=== PATIENT | female | born 1980 | race Caucasian/White ===

== ENCOUNTER → 2016-11-01 | Outpatient (CLI) | payer OTHER ==
[~2016-11-01] MED LIST: AUGM500T34 PO; PERC5TAB6 PO; PRED20TA PO
== END ==
LOC: M LAB 09:29
PROVIDERS: ATTEND Obstetrics & Gynecology
DX: N96 Recurrent pregnancy loss (principal); N91.2 Amenorrhea, unspecified

== ENCOUNTER → 2016-11-03 | Outpatient (CLI) | payer OTHER | LOC: M WUC 10:57 | PROVIDERS: ATTEND Specialist | DX: O26.21 Pregnancy care for patient with recurrent pregnancy loss, first trimester (principal) ==

== ENCOUNTER → 2016-11-05 | Outpatient (CLI) | payer OTHER ==
--- NOTE | 2016-11-05 10:24 | REP ---
FIRST TRIMESTER ULTRASOUND: Real-time sonographic evaluation of the pelvis is performed utilizing transabdominal and endovaginal technique. The uterus measures 9.6 x 4.6 x 7.4 cm. 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 Endometrial thickness on the right is about 11 mm and on the left is about 15 mm. There is no endometrial fluid collection. A few tiny cystic areas in the endometrial echo complex are seen measuring up to 2 mm in diameter. Right ovary measures 2.5 x 2.8 x 1.9 cm and the left ovary is 2.5 x 1.8 x 2.3 cm. There is blood flow seen in each ovary with duplex Doppler evaluation, with no torsion. There appears to be a cystic structure in the right ovary which may represent a dominant follicle or corpus luteum, approximately 1.1 cm in maximum diameter. Echogenic focus in the left ovary could represent a tiny dermoid 5 x 7 x 5 mm. Trace free fluid is seen in the pelvis. IMPRESSION: No definite intrauterine identified as discussed in detail above. No adnexal mass. Trace free fluid. I cannot rule out ectopic and would recommend correlation with followup serial quantitative beta HCG values. Signed by Da Ugalde MD 11/05/2016 07:39 P
== END ==
LOC: M SMT 08:38
PROVIDERS: ATTEND Obstetrics & Gynecology
DX: Z36 Encounter for antenatal screening of mother (principal); Z3A.00 Weeks of gestation of pregnancy not specified

== ENCOUNTER → 2016-11-12 | Outpatient (CLI) | payer OTHER | LOC: M WUC 14:01 | PROVIDERS: ATTEND Obstetrics & Gynecology | DX: Z36 Encounter for antenatal screening of mother (principal); Z3A.00 Weeks of gestation of pregnancy not specified ==

== ENCOUNTER → 2016-11-17 | Outpatient (CLI) | payer OTHER | LOC: M WUC 14:32 | PROVIDERS: ATTEND Obstetrics & Gynecology | DX: O02.1 Missed abortion (principal); O03.4 Incomplete spontaneous abortion without complication; Z3A.00 Weeks of gestation of pregnancy not specified | CPT/HCPCS: 36415; 84702; 86850; 86901; J2790 ==

== ENCOUNTER → 2016-11-25 | Outpatient (CLI) | payer OTHER ==
--- NOTE | 2016-11-25 13:03 | REP ---
RIGHT BREAST ULTRASOUND: 11/25/2016. Comparison: 05/13/2016, 02/06/2016. Clinical history: Right breast cyst, redness and pain retroareolar zone. The patient had a right breast surgery 1 year ago for reported abscess retroareolar region. Sonographic evaluation of this region in the retroareolar right breast with pain at about the 9 o'clock position adjacent to the nipple near her surgical scar. There is some minor subcutaneous edema noted in this region. A zone of shadowing at 6 o'clock which could obscure findings deep. This may be postsurgical change. I do not see a drainable collection, discrete mass or cyst. A few ducts are seen leading to the nipple which is normal appearance. Impression: 1. Retroareolar region 6 o'clock position in the area of her redness and near the area of pain shows an area of shadowing from edge artifact or postsurgical change. I do not see a definite drainable collection or mass although is possible one could be obscured by the edge artifact, there are no cysts or solid mass definitely visible. A few mildly prominent ducts are noted in the retroareolar region which is normal. Careful follow-up recommended. If the patient has a fever, worsening symptoms, repeat ultrasound. Ultimately, mammography may be helpful if symptoms persist. Signed by Ty Loya MD 11/25/2016 05:44 P
== END ==
LOC: M RAD 10:17
PROVIDERS: ATTEND Nurse Practitioner Adult Health
DX: N60.01 Solitary cyst of right breast (principal)

== ENCOUNTER → 2016-12-01 | Outpatient (CLI) | payer OTHER | LOC: M WUC 16:52 | PROVIDERS: ATTEND Obstetrics & Gynecology | DX: O03.4 Incomplete spontaneous abortion without complication (principal); Z3A.00 Weeks of gestation of pregnancy not specified ==

== ENCOUNTER → 2016-12-08 | Outpatient (CLI) | payer OTHER | LOC: M WUC 15:20 | PROVIDERS: ATTEND Obstetrics & Gynecology | DX: O03.4 Incomplete spontaneous abortion without complication (principal) ==

== ENCOUNTER → 2016-12-25 | Outpatient (CLI) | payer OTHER | LOC: M WUC 14:23 | PROVIDERS: ATTEND Obstetrics & Gynecology | DX: O03.4 Incomplete spontaneous abortion without complication (principal) ==

== ENCOUNTER → 2016-12-29 | Outpatient (CLI) | payer OTHER | LOC: M WUC 13:49 | PROVIDERS: ATTEND Obstetrics & Gynecology | DX: O03.4 Incomplete spontaneous abortion without complication (principal); Z3A.00 Weeks of gestation of pregnancy not specified ==

== ENCOUNTER 2017-03-02 23:42 | Emergency (ER) | payer OTHER ==
[~2017-03-02] VITALS: Ht 167.6 cm; Wt 86.2 kg
[2017-03-02] MEDS ORDERED: TRAZ100T4 (23:53)
[2017-03-02] MEDS ORDERED: D 50CAP (23:53)
[2017-03-02] MEDS ORDERED: TANZ1INJ (23:53)
[2017-03-03] MEDS ORDERED: TRAM50TA2 PO (04:15)
[2017-03-03] MEDS ORDERED: KETOROLAC 60 MG/2 ML VIAL (J1885) IM ONE (04:15)
[2017-03-03 04:53] VITALS: BP 131/78
--- NOTE | 2017-03-03 07:22 | REP ---
Clinical: Trauma. Technique: AP, lateral, bilateral oblique views of the right ankle. Comparison: 11/19/2007 Findings: Mild soft tissue swelling cannot be excluded. No obvious acute fracture dislocation. Joint spaces and ankle mortise are intact. Lateral view demonstrates a small unfused apophysis along the superior posterior margin of the navicular bone which remain stable compared to 2007. Impression: Mild soft tissue swelling. No acute fracture dislocation. Stable appearance to the navicular bone when compared to 2007. Signed by Jose Alejandro Salter MD 03/03/2017 07:14 A
== END 2017-03-03 04:55 | disposition home or self-care (01) ==
LOC: M ED 03-03 01:02
DX: S92.251A Displaced fracture of navicular [scaphoid] of right foot, initial encounter for closed fracture (principal); W01.0XXA Fall on same level from slipping, tripping and stumbling without subsequent striking against object, initial encounter; Y92.099 Unspecified place in other non-institutional residence as the place of occurrence of the external cause; Y93.01 Activity, walking, marching and hiking; Y99.8 Other external cause status; F17.200 Nicotine dependence, unspecified, uncomplicated; Z88.5 Allergy status to narcotic agent; Z91.040 Latex allergy status; Z79.899 Other long term (current) drug therapy

== ENCOUNTER → 2017-06-11 | Outpatient (CLI) | payer OTHER ==
[~2017-06-11] MED LIST changes: +D 50CAP; +PERC5TAB12 PO; -PERC5TAB6 PO; +TANZ1INJ; +TRAM50TA2 PO; +TRAZ-136
[2017-06-11 13:00] LABS: BASO # 0.1 K/mm3 (0.0-0.2); BASO % 0.9 % (0.0-1.0); EOS # 0.4 K/mm3 (0.0-0.50); EOS % 4.8 % (0.0-3.0); LYMPH # 2.8 K/mm3 (1.5-4.5); MEAN CORPUSCULAR HEMOGLOBIN 31.9 pg (27.0-33.0); MEAN CORPUSCULAR HGB CONC 33.1 g/dl (32.0-36.5); MEAN CORPUSCULAR VOLUME 96.6 fl (80.0-96.0); MONO # 0.4 K/mm3 (0.0-0.8); MONO % 4.3 % (0.0-5.0); NEUTROPHILS % 57.8 % (36.0-66.0); RED CELL DISTRIBUTION WIDTH 13.1 % (11.5-14.5); WHITE BLOOD COUNT 8.6 K/mm3 (4.0-10.0)
[2017-06-11 13:49] LABS: ALBUMIN 3.6 GM/DL (3.2-5.2); ALBUMIN/GLOBULIN RATIO 1.06 (1.00-1.93); ALKALINE PHOSPHATASE 65 U/L (45-117); ALT/SGPT 23 U/L (12-78); ANION GAP 11 MEQ/L (8-16); AST/SGOT 11 U/L (15-37); BILIRUBIN,TOTAL 0.3 MG/DL (0.2-1.0); BLOOD UREA NITROGEN 7 MG/DL (7-18); CALCIUM LEVEL 9.3 MG/DL (8.5-10.1); CARBON DIOXIDE LEVEL 23 MEQ/L (21-32); CHLORIDE LEVEL 109 MEQ/L (98-107); CHOLESTEROL LEVEL 193 MG/DL (<200); CREATININE FOR GFR 0.55 MG/DL (0.55-1.02); FREE T4 0.88 NG/DL (0.76-1.46); GLOMERULAR FILTRATION RATE > 60.0 (>60); GLUCOSE, FASTING 102 MG/DL (70-105); POTASSIUM SERUM 4.4 MEQ/L (3.5-5.1); SODIUM LEVEL 143 MEQ/L (136-145); TRIGLYCERIDES LEVEL 293 MG/DL (<150)
== END ==
LOC: M WUC 09:45
PROVIDERS: ATTEND Nurse Practitioner Adult Health
DX: E78.1 Pure hyperglyceridemia (principal); E11.9 Type 2 diabetes mellitus without complications; E78.5 Hyperlipidemia, unspecified; E55.9 Vitamin D deficiency, unspecified; Z79.899 Other long term (current) drug therapy

== ENCOUNTER → 2017-11-02 | Outpatient (CLI) | payer OTHER ==
[2017-11-02 19:46] LABS: TOTAL 25(OH) VITAMIN D 13.8 NG/ML (30.0-100.0)
[2017-11-02 20:02] LABS: BASO # 0.1 10^3/uL (0.0-0.2); BASO % 0.9 % (0.0-1.0); EOS # 0.4 10^3/uL (0.0-0.50); EOS % 5.1 % (0.0-3.0); HEMATOCRIT 45.8 % (36.0-47.0); HEMOGLOBIN 15.3 g/dl (12.0-16.0); IMMATURE GRANULOCYTE # 0.1 10^3/uL (0-0); IMMATURE GRANULOCYTE % 0.9 % (0-0); LYMPH % 37.1 % (24.0-44.0); MEAN CORPUSCULAR HEMOGLOBIN 31.4 pg (27.0-33.0); MEAN CORPUSCULAR HGB CONC 33.4 g/dl (32.0-36.5); MEAN CORPUSCULAR VOLUME 93.9 fl (80.0-96.0); MONO # 0.5 10^3/uL (0.0-0.8); MONO % 5.5 % (0.0-5.0); NEUTROPHILS # 4.1 10^3/uL (1.8-7.7); NEUTROPHILS % 50.5 % (36.0-66.0); PLATELET COUNT, AUTOMATED 281 10^3/uL (150-450); RED BLOOD COUNT 4.88 10^6/uL (4.00-5.40); RED CELL DISTRIBUTION WIDTH 12.9 % (11.5-14.5); WHITE BLOOD COUNT 8.1 10^3/uL (4.0-10.0)
[2017-11-02 20:20] LABS: ALBUMIN 4.1 GM/DL (3.2-5.2); ALBUMIN/GLOBULIN RATIO 1.28 (1.00-1.93); ALKALINE PHOSPHATASE 71 U/L (45-117); ALT/SGPT 26 U/L (12-78); ANION GAP 9 MEQ/L (8-16); AST/SGOT 17 U/L (7-37); BILIRUBIN,TOTAL 0.5 MG/DL (0.2-1.0); BLOOD UREA NITROGEN 8 MG/DL (7-18); CALCIUM LEVEL 8.7 MG/DL (8.5-10.1); CARBON DIOXIDE LEVEL 24 MEQ/L (21-32); CHLORIDE LEVEL 108 MEQ/L (98-107); CHOLESTEROL LEVEL 202 MG/DL (<200); CHOLESTEROL RISK RATIO 6.312 (<5); CREATININE FOR GFR 0.53 MG/DL (0.55-1.30); FREE T4 0.94 NG/DL (0.76-1.46); GLOMERULAR FILTRATION RATE > 60.0 (>60); GLUCOSE, FASTING 99 MG/DL (70-100); HDL CHOLESTEROL 32 MG/DL (>40); LDL CHOLESTEROL 109.8 MG/DL (<100); NON-HDL-C 170 MG/DL; POTASSIUM SERUM 4.3 MEQ/L (3.5-5.1); SODIUM LEVEL 141 MEQ/L (136-145); TOTAL PROTEIN 7.3 GM/DL (6.4-8.2); TRIGLYCERIDES LEVEL 301 MG/DL (<150)
[2017-11-02 20:27] LABS: ESTIMATED AVERAGE GLUCOSE 114 MG/DL (60-110); HEMOGLOBIN A1c 5.6 %
== END ==
LOC: M WUC 13:36
DX: E78.1 Pure hyperglyceridemia (principal); E11.9 Type 2 diabetes mellitus without complications; E55.9 Vitamin D deficiency, unspecified; E78.5 Hyperlipidemia, unspecified; Z79.899 Other long term (current) drug therapy
CPT/HCPCS: 84443

== ENCOUNTER → 2017-12-21 | Outpatient (CLI) | payer OTHER ==
[2017-12-21 17:14] LABS: HCG, SERUM QUANTITATIVE 742 MIU/ML
== END ==
LOC: M WUC 14:44
DX: N91.2 Amenorrhea, unspecified (principal)
CPT/HCPCS: 84702

== ENCOUNTER → 2017-12-23 | Outpatient (CLI) | payer OTHER ==
[2017-12-23 18:01] LABS: HCG, SERUM QUANTITATIVE 1305 MIU/ML
== END ==
LOC: M WUC 14:51
DX: N91.2 Amenorrhea, unspecified (principal)
CPT/HCPCS: 84702

== ENCOUNTER 2018-01-30 11:48 | Emergency (ER) | payer OTHER ==
[2018-01-30 13:45] LABS: KETONE, URINE AUTO RFX NEGATIVE (NEGATIVE); LEUKOCYTE ESTERASE UR AUTO RFX NEGATIVE (NEGATIVE); NITRITE, URINE AUTO RFX NEGATIVE (NEGATIVE); RBC, URINE AUTO RFX 1 /HPF (0-3); SPECIFIC GRAVITY UR AUTO RFX 1.003 (1.002-1.035); SQUAM EPITHELIAL CELL UR AURFX 0 /HPF (0-6); WBC, URINE AUTO RFX 0 /HPF (0-3)
[2018-01-30 14:17] LABS: HCG, SERUM QUANTITATIVE 45211 MIU/ML
== END 2018-01-30 15:33 | disposition home or self-care (01) ==
LOC: M ED 11:48
DX: O26.891 Other specified pregnancy related conditions, first trimester (principal); R10.2 Pelvic and perineal pain; O99.331 Smoking (tobacco) complicating pregnancy, first trimester; F17.210 Nicotine dependence, cigarettes, uncomplicated; O26.20 Pregnancy care for patient with recurrent pregnancy loss, unspecified trimester; Z3A.09 9 weeks gestation of pregnancy; Z88.5 Allergy status to narcotic agent; Z91.040 Latex allergy status; Z79.899 Other long term (current) drug therapy; Z79.4 Long term (current) use of insulin
CPT/HCPCS: 76801

== ENCOUNTER 2018-02-07 20:32 | Emergency (ER) | payer OTHER ==
[2018-02-07 21:19] LABS: KETONE, URINE AUTO RFX TRACE mg/dL (NEGATIVE); LEUKOCYTE ESTERASE UR AUTO RFX NEGATIVE (NEGATIVE); MUCUS, URINE RFX SMALL (NEGATIVE); NITRITE, URINE AUTO RFX NEGATIVE (NEGATIVE); RBC, URINE AUTO RFX 1 /HPF (0-3); SPECIFIC GRAVITY UR AUTO RFX 1.025 (1.002-1.035); SQUAM EPITHELIAL CELL UR AURFX 1 /HPF (0-6); WBC, URINE AUTO RFX 1 /HPF (0-3)
[2018-02-07 22:24] LABS: HEMATOCRIT 38.1 % (36.0-47.0); HEMOGLOBIN 12.8 g/dl (12.0-15.5); MEAN CORPUSCULAR HEMOGLOBIN 31.6 pg (27.0-33.0); MEAN CORPUSCULAR HGB CONC 33.6 g/dl (32.0-36.5); MEAN CORPUSCULAR VOLUME 94.1 fl (80.0-96.0); PLATELET COUNT, AUTOMATED 298 10^3/uL (150-450); RED BLOOD COUNT 4.05 10^6/uL (4.00-5.40); RED CELL DISTRIBUTION WIDTH 13.1 % (11.5-14.5)
[2018-02-07 22:59] LABS: HCG, SERUM QUANTITATIVE 35773 MIU/ML
[2018-02-09 09:34] LABS: BEDSIDE GLUCOSE 94 MG/DL (70-105)
== END 2018-02-07 23:33 | disposition home or self-care (01) ==
LOC: M ED 20:32
DX: O20.0 Threatened abortion (principal); Z88.5 Allergy status to narcotic agent; Z91.040 Latex allergy status; O99.331 Smoking (tobacco) complicating pregnancy, first trimester; F17.210 Nicotine dependence, cigarettes, uncomplicated; Z3A.11 11 weeks gestation of pregnancy
CPT/HCPCS: 76801

== ENCOUNTER → 2018-02-18 | Outpatient (REF) | payer OTHER | LOC: M LAB REF 12:45 | DX: R30.0 Dysuria (principal) ==

== ENCOUNTER → 2018-02-18 | Outpatient (REF) | payer OTHER | LOC: M LAB REF 13:37 | DX: L02.239 Carbuncle of trunk, unspecified (principal) ==

== ENCOUNTER → 2018-03-29 | Outpatient (CLI) | payer OTHER | LOC: M RAD 09:35 | DX: Z34.82 Encounter for supervision of other normal pregnancy, second trimester (principal); Z3A.18 18 weeks gestation of pregnancy | CPT/HCPCS: 76811 ==

== ENCOUNTER → 2018-04-03 | Outpatient (CLI) | payer OTHER ==
[2018-04-03 18:56] LABS: ESTIMATED AVERAGE GLUCOSE 97 MG/DL (60-110)
== END ==
LOC: M WUC 09:33
DX: O24.112 Pre-existing type 2 diabetes mellitus, in pregnancy, second trimester (principal)
CPT/HCPCS: 83036

== ENCOUNTER → 2018-05-12 | Outpatient (CLI) | payer OTHER | LOC: M RAD 08:30 | DX: O24.112 Pre-existing type 2 diabetes mellitus, in pregnancy, second trimester (principal); Z3A.24 24 weeks gestation of pregnancy | CPT/HCPCS: 76816 ==

== ENCOUNTER → 2018-05-26 | Outpatient (CLI) | payer OTHER ==
[2018-05-26 12:07] LABS: BASO % 0.3 % (0.0-1.0); EOS # 0.2 10^3/uL (0.0-0.50); EOS % 1.7 % (0.0-3.0); HEMATOCRIT 35.7 % (36.0-47.0); HEMOGLOBIN 11.8 g/dl (12.0-15.5); IMMATURE GRANULOCYTE % 1.4 % (0-3.0); LYMPH # 2.5 10^3/uL (1.5-4.5); LYMPH % 21.8 % (24.0-44.0); MEAN CORPUSCULAR HGB CONC 33.1 g/dl (32.0-36.5); MEAN CORPUSCULAR VOLUME 93.7 fl (80.0-96.0); MONO # 0.4 10^3/uL (0.0-0.8); MONO % 3.4 % (0.0-5.0); NEUTROPHILS # 8.2 10^3/uL (1.8-7.7); NEUTROPHILS % 71.4 % (36.0-66.0); PLATELET COUNT, AUTOMATED 284 10^3/uL (150-450); RED BLOOD COUNT 3.81 10^6/uL (4.00-5.40); RED CELL DISTRIBUTION WIDTH 13.4 % (11.5-14.5); WHITE BLOOD COUNT 11.5 10^3/uL (4.0-10.0)
[2018-05-27 09:05] LABS: RH ONLY RHOGAM 1 1
== END ==
LOC: M LAB 11:47
DX: Z34.82 Encounter for supervision of other normal pregnancy, second trimester (principal); Z36.89 Encounter for other specified antenatal screening
CPT/HCPCS: 85025

== ENCOUNTER → 2018-06-08 | Outpatient (CLI) | payer OTHER | LOC: M RAD 12:58 | DX: O24.112 Pre-existing type 2 diabetes mellitus, in pregnancy, second trimester (principal); Z3A.29 29 weeks gestation of pregnancy; O32.1XX0 Maternal care for breech presentation, not applicable or unspecified | CPT/HCPCS: 76819 ==

== ENCOUNTER → 2018-06-15 | Outpatient (CLI) | payer OTHER | LOC: M RAD 13:09 | DX: O24.112 Pre-existing type 2 diabetes mellitus, in pregnancy, second trimester (principal); Z3A.29 29 weeks gestation of pregnancy | CPT/HCPCS: 76815 ==

== ENCOUNTER → 2018-06-17 | Outpatient (CLI) | payer OTHER ==
[2018-06-17 19:17] LABS: TOTAL PROTEIN,RANDOM URINE 6.8 MG/DL (0.0-12.0)
[2018-06-17 19:38] LABS: ALT/SGPT 17 U/L (12-78); AST/SGOT 9 U/L (7-37); BILIRUBIN,TOTAL 0.3 MG/DL (0.2-1.0); CREATININE FOR GFR 0.47 MG/DL (0.55-1.30); GLOMERULAR FILTRATION RATE > 60.0 (>60); LDH LACTATE DEHYDROGENASE 147 U/L (84-246); URIC ACID 4.2 MG/DL (2.6-6.0)
== END ==
LOC: M SMT 14:02
DX: R03.0 Elevated blood-pressure reading, without diagnosis of hypertension (principal)
CPT/HCPCS: 84460

== ENCOUNTER → 2018-06-22 | Outpatient (CLI) | payer OTHER | LOC: M RAD 13:08 | DX: Z34.82 Encounter for supervision of other normal pregnancy, second trimester (principal) | CPT/HCPCS: 76815 ==

== ENCOUNTER → 2018-06-28 | Outpatient (CLI) | payer OTHER ==
[2018-06-28 14:09] LABS: ESTIMATED AVERAGE GLUCOSE 100 MG/DL (60-110); HEMOGLOBIN A1c 5.1 %
== END ==
LOC: M WUC 08:33
DX: O24.113 Pre-existing type 2 diabetes mellitus, in pregnancy, third trimester (principal); Z3A.00 Weeks of gestation of pregnancy not specified
CPT/HCPCS: 83036

== ENCOUNTER → 2018-06-29 | Outpatient (CLI) | payer OTHER | LOC: M RAD 12:58 | DX: O24.112 Pre-existing type 2 diabetes mellitus, in pregnancy, second trimester (principal); Z3A.29 29 weeks gestation of pregnancy | CPT/HCPCS: 76819 ==

== ENCOUNTER → 2018-07-06 | Outpatient (CLI) | payer OTHER | LOC: M RAD 12:58 | DX: O24.113 Pre-existing type 2 diabetes mellitus, in pregnancy, third trimester (principal) | CPT/HCPCS: 76815 ==

== ENCOUNTER → 2018-07-13 | Outpatient (CLI) | payer OTHER | LOC: M RAD 13:07 | DX: O24.113 Pre-existing type 2 diabetes mellitus, in pregnancy, third trimester (principal) | CPT/HCPCS: 76819 ==

== ENCOUNTER → 2018-07-20 | Outpatient (CLI) | payer OTHER | LOC: M RAD 13:13 | DX: O24.113 Pre-existing type 2 diabetes mellitus, in pregnancy, third trimester (principal); Z3A.34 34 weeks gestation of pregnancy | CPT/HCPCS: 76815 ==

== ENCOUNTER → 2018-07-21 | Outpatient (REF) | payer OTHER | LOC: M LAB REF 18:42 | DX: O24.113 Pre-existing type 2 diabetes mellitus, in pregnancy, third trimester (principal) | CPT/HCPCS: 87186 ==

== ENCOUNTER → 2018-07-27 | Outpatient (CLI) | payer OTHER | LOC: M RAD 13:32 | DX: O24.113 Pre-existing type 2 diabetes mellitus, in pregnancy, third trimester (principal); O32.1XX0 Maternal care for breech presentation, not applicable or unspecified; Z3A.36 36 weeks gestation of pregnancy; O36.5930 Maternal care for other known or suspected poor fetal growth, third trimester, not applicable or unspecified | CPT/HCPCS: 76819 ==

== ENCOUNTER 2018-08-02 05:52 | Inpatient (IN) | payer OTHER ==
[2018-08-02] MEDS ORDERED: LR 1,000 ML IV (06:15)
[2018-08-02 06:44] LABS: HEMATOCRIT 37.5 % (36.0-47.0); HEMOGLOBIN 12.6 g/dl (12.0-15.5); MEAN CORPUSCULAR HEMOGLOBIN 31.1 pg (27.0-33.0); MEAN CORPUSCULAR HGB CONC 33.6 g/dl (32.0-36.5); MEAN CORPUSCULAR VOLUME 92.6 fl (80.0-96.0); PLATELET COUNT, AUTOMATED 304 10^3/uL (150-450); RED BLOOD COUNT 4.05 10^6/uL (4.00-5.40); RED CELL DISTRIBUTION WIDTH 13.8 % (11.5-14.5); WHITE BLOOD COUNT 12.6 10^3/uL (4.0-10.0)
[2018-08-02] MEDS: LR 1,000 ML IV ×3 (07:28→09:15)
[2018-08-02] MEDS: BICITRA 30ML SOLN UDC PO (07:29)
[2018-08-02] MEDS ORDERED: MORPHINE PRES-FREE INJ 10 MG/10 ML VIAL (J2274) As Ordered (07:50)
[2018-08-02] MEDS ORDERED: OXYTOCIN INJ 10 UNITS/ML VIAL (J2590) As Ordered (07:50)
[2018-08-02] MEDS ORDERED: ePHEDrine SULFATE 25 MG/5 ML(5MG/ML) SYRINGE As Ordered (07:52)
[2018-08-02] MEDS ORDERED: PHENYLephrine HCL 500 MCG/5 ML (100MCG/ML) SYRINGE (J2370) As Ordered (07:54)
[2018-08-02] MEDS ORDERED: METOCLOPRAMIDE INJ 10MG/2ML VIAL (J2765) As Ordered (07:54)
[2018-08-02] MEDS ORDERED: KETOROLAC 60 MG/2 ML VIAL (J1885) As Ordered (07:55)
[2018-08-02] MEDS ORDERED: ONDANSETRON 4MG/2ML VIAL (J2405) As Ordered (07:55)
[2018-08-02] MEDS ORDERED: MEASLES,MUMPS,RUBELLA VACCINE INJ (MMR-II) (90707) SC (08:00)
[2018-08-02] MEDS ORDERED: PROMETHAZINE 25 MG TAB PO (08:00)
[2018-08-02] MEDS ORDERED: ONDANSETRON 4MG/2ML VIAL (J2405) IV ×3 (08:00→10:30)
[2018-08-02] MEDS ORDERED: PROPOFOL 200 MG/20 ML VIAL As Ordered ×2 (08:35→08:51)
[2018-08-02] MEDS ORDERED: diphenhydrAMINE INJ 50MG/ML VIAL (J1200) As Ordered (09:02)
[2018-08-02] MEDS: OXYTOCIN DRIP 30 UNITS in APPROPRIATE DILUENT 1 EA IV (09:15)
[2018-08-02] MEDS ORDERED: OXYTOCIN 30 UNITS IN 0.9% NaCl 500ML IV BAG (J2590) As Ordered (09:16)
[2018-08-02] MEDS ORDERED: fentaNYL 100 MCG/2 ML INJECTION (J3010) As Ordered (09:43)
[2018-08-02] MEDS ORDERED: HYDROMORPHONE HCL 0.5 MG/ 0.5 ML SYRINGE (J1170 PER 1) IV (09:45)
[2018-08-02] MEDS ORDERED: NALBUPHINE HCL 10 MG/ML AMP (J2300) IV ×2 (09:45→10:30)
[2018-08-02] MEDS: fentaNYL 100 MCG/2 ML INJECTION (J3010) IV ×4 (09:48→10:03)
[2018-08-02] MEDS ORDERED: METOCLOPRAMIDE INJ 10MG/2ML VIAL (J2765) IV (10:30)
[2018-08-02] MEDS ORDERED: NALOXONE INJ 0.4 MG/1 ML VIAL (J2310) IV ×2 (10:30)
[2018-08-02] MEDS: PRENATAL VITAMINS CHEWABLE TABLET PO (11:40)
[2018-08-02] MEDS: DOCUSATE SODIUM 100 MG CAP PO ×2 (11:40→20:52)
[2018-08-02] MEDS: traMADol 50 MG TAB PO ×3 (11:41→22:58)
[2018-08-02] MEDS: KETOROLAC 30 MG/ML VIAL (J1885) IV ×2 (14:17→20:52)
[2018-08-02] MEDS: HumaLOG INSULIN (NovoLOG) PER UNIT SC ×2 (17:40→20:48)
[2018-08-02 17:53] LABS: BEDSIDE GLUCOSE 94 MG/DL (70-105)
[2018-08-02 20:44] LABS: BEDSIDE GLUCOSE 177 MG/DL (70-105)
[2018-08-03] MEDS: KETOROLAC 30 MG/ML VIAL (J1885) IV (03:20)
[2018-08-03 07:18] LABS: HEMATOCRIT 33.1 % (36.0-47.0); HEMOGLOBIN 10.9 g/dl (12.0-15.5); MEAN CORPUSCULAR HGB CONC 32.9 g/dl (32.0-36.5); PLATELET COUNT, AUTOMATED 250 10^3/uL (150-450); RED BLOOD COUNT 3.52 10^6/uL (4.00-5.40); RED CELL DISTRIBUTION WIDTH 14.1 % (11.5-14.5); WHITE BLOOD COUNT 10.7 10^3/uL (4.0-10.0)
[2018-08-03] MEDS: HumaLOG INSULIN (NovoLOG) PER UNIT SC ×4 (07:30→21:00)
[2018-08-03 07:34] LABS: BEDSIDE GLUCOSE 76 MG/DL (70-105)
[2018-08-03] MEDS: PRENATAL VITAMINS CHEWABLE TABLET PO (07:43)
[2018-08-03] MEDS: DOCUSATE SODIUM 100 MG CAP PO ×2 (07:44→21:00)
[2018-08-03] MEDS: IBUPROFEN 800 MG TAB PO ×2 (11:31→18:42)
[2018-08-03 11:50] LABS: BEDSIDE GLUCOSE 97 MG/DL (70-105)
[2018-08-03 13:24] LABS: FETAL SCREEN PROF. 1 1
[2018-08-03] MEDS: INFLUENZA QUADRIVALENT PF VACCINE 0.5ML SYRINGE (90686) IM (13:47)
[2018-08-03] MEDS: RHOGAM 300 MCG (1500 IU) INJ (J2790) IM (13:52)
[2018-08-03] MEDS: traMADol 50 MG TAB PO ×2 (16:11→22:01)
[2018-08-03 17:41] LABS: BEDSIDE GLUCOSE 110 MG/DL (70-105)
[2018-08-03 21:08] LABS: BEDSIDE GLUCOSE 135 MG/DL (70-105)
[2018-08-04] MEDS: ACETAMINOPHEN 500 MG TAB PO (05:31)
[2018-08-04] MEDS: HumaLOG INSULIN (NovoLOG) PER UNIT SC (07:30)
[2018-08-04 08:19] LABS: BEDSIDE GLUCOSE 86 MG/DL (70-105)
[2018-08-04] MEDS: DOCUSATE SODIUM 100 MG CAP PO (08:19)
[2018-08-04] MEDS: PRENATAL VITAMINS CHEWABLE TABLET PO (08:19)
[2018-08-04] MEDS: IBUPROFEN 800 MG TAB PO (09:41)
== END 2018-08-04 10:40 | disposition home or self-care (01) | DRG 540 ==
LOC: M LDI 05:52 → M OBS 10:46
PROVIDERS: Obstetrics & Gynecology
PROC: 10D00Z1 Extraction of Products of Conception, Low, Open Approach (ICD-10-PCS; principal; 2018-08-02 07:30)
PROC: 0UB70ZZ Excision of Bilateral Fallopian Tubes, Open Approach (ICD-10-PCS; 2018-08-02 07:30)
DX: O34.211 Maternal care for low transverse scar from previous cesarean delivery (principal); O24.12 Pre-existing type 2 diabetes mellitus, in childbirth; O36.5930 Maternal care for other known or suspected poor fetal growth, third trimester, not applicable or unspecified; O32.1XX0 Maternal care for breech presentation, not applicable or unspecified; E11.9 Type 2 diabetes mellitus without complications; O99.334 Smoking (tobacco) complicating childbirth; F17.210 Nicotine dependence, cigarettes, uncomplicated; Z30.2 Encounter for sterilization; Z3A.37 37 weeks gestation of pregnancy; Z79.4 Long term (current) use of insulin; Z37.0 Single live birth

== ENCOUNTER → 2018-10-21 | Outpatient (REF) | payer OTHER ==
[~2018-10-21] MED LIST changes: +CRIN4GEL2 TOP; +FLINCHW7 PO; +INSUN; +INSUR SQ; -TRAZ-136; +TRAZ-163
[2018-10-23 15:16] LABS: HPV HYBRID CAPTURE II Negative (Negative)
== END ==
LOC: M LAB REF 13:48
PROVIDERS: ATTEND Obstetrics & Gynecology
DX: Z12.4 Encounter for screening for malignant neoplasm of cervix (principal)

== ENCOUNTER → 2019-02-11 | Outpatient (CLI) | payer OTHER ==
[~2019-02-11] MED LIST changes: -CRIN4GEL2 TOP; +CRIN8GEL4 TOP
--- NOTE | 2019-02-11 19:34 | REP ---
Lumbar spine series: Five views. History: Low back pain. No comparison radiographs. Findings: There is a dextroconvex curvature in the lumbar spine on the AP view. Lumbar vertebral body heights are preserved. Alignment is otherwise normal. There is degenerative disc narrowing at L4-5 with early spurring. Mild discogenic spurring is seen in one of the lower thoracic levels as well. There is mild facet hypertrophy bilaterally at L5-S1. Sacrum and SI joints are intact. Psoas margins are symmetric. Impression: Mild dextroconvex curvature. Degenerative disc disease at L4-5. Facet arthropathy bilaterally at L5-S1. Electronically Signed by Binu Limon MD 02/11/2019 08:31 P
== END ==
LOC: M WUC 16:01
PROVIDERS: ATTEND Physician Assistant
DX: M51.36 Other intervertebral disc degeneration, lumbar region (principal); M25.78 Osteophyte, vertebrae

== ENCOUNTER → 2019-02-16 | Outpatient (REF) | payer OTHER ==
[2019-02-16 18:24] LABS: BASO # 0.1 10^3/uL (0.0-0.2); BASO % 0.9 % (0.0-1.0); EOS # 0.2 10^3/uL (0.0-0.50); EOS % 1.5 % (0.0-3.0); HEMATOCRIT 49.7 % (36.0-47.0); HEMOGLOBIN 15.9 g/dl (12.0-15.5); LYMPH # 3.3 10^3/uL (1.5-4.5); LYMPH % 25.3 % (24.0-44.0); MEAN CORPUSCULAR VOLUME 96.9 fl (80.0-96.0); MONO # 0.7 10^3/uL (0.0-0.8); MONO % 5.7 % (0.0-5.0); NEUTROPHILS # 8.4 10^3/uL (1.8-7.7); NEUTROPHILS % 65.4 % (36.0-66.0); PLATELET COUNT, AUTOMATED 324 10^3/uL (150-450); RED BLOOD COUNT 5.13 10^6/uL (4.00-5.40); WHITE BLOOD COUNT 12.9 10^3/uL (4.0-10.0)
[2019-02-16 18:35] LABS: ALBUMIN 4.3 GM/DL (3.2-5.2); ALT/SGPT 18 U/L (12-78); BLOOD UREA NITROGEN 12 MG/DL (7-18); CALCIUM LEVEL 9.3 MG/DL (8.5-10.1); CARBON DIOXIDE LEVEL 26 MEQ/L (21-32); CHLORIDE LEVEL 105 MEQ/L (98-107); CHOLESTEROL LEVEL 211 MG/DL (<200); CHOLESTEROL RISK RATIO 4.795 (<5); CREATININE FOR GFR 0.67 MG/DL (0.55-1.30); GLOMERULAR FILTRATION RATE > 60.0 (>60); GLUCOSE, FASTING 92 MG/DL (70-100); HDL CHOLESTEROL 44 MG/DL (>40); LDL CHOLESTEROL 126 MG/DL (<100); NON-HDL-C 167 MG/DL; POTASSIUM SERUM 4.2 MEQ/L (3.5-5.1); SODIUM LEVEL 137 MEQ/L (136-145); TRIGLYCERIDES LEVEL 207 MG/DL (<150)
[2019-02-16 19:44] LABS: HEMOGLOBIN A1c 5.9 %
[2019-02-16 20:03] LABS: TOTAL 25(OH) VITAMIN D 5.6 NG/ML (30.0-100.0)
== END ==
LOC: M LAB REF 17:54
PROVIDERS: ATTEND Nurse Practitioner Family
DX: Z13.9 Encounter for screening, unspecified (principal)

== ENCOUNTER → 2019-04-22 | Outpatient (CLI) | payer OTHER ==
[~2019-04-22] MED LIST changes: +PROHANCE 279.3MG/ML 15ML VIAL (A9576) As Ordered ONE; +PROHANCE 279.3MG/ML 5ML VIAL (A9576) As Ordered ONE
--- NOTE | 2019-04-22 12:44 | REP ---
Bilateral breast MRI study without and with IV gadolinium: History: History of right breast nipple discharge. Positive family history breast carcinoma. No comparison breast imaging is available . The patient gives a history of abscess removing in 2016 from the right breast. Technique: 3 [facility] MRI imaging was performed with a dedicated breast coil. Axial, coronal, and sagittal T1 and T2-weighted scans were obtained with and without fat saturation in the usual fashion. The study includes dynamically acquired post gadolinium enhanced imaging subtraction imaging. Maximal intensity projection and multiplanar re-formation imaging is included as well. The study was interpreted with the aid of [employer], an FDA approved computer-aided detection (CAD) software program, on a dedicated breast MRI work station. The gadolinium enhancement dose is 20 mL of intravenous ProHance. Findings: There are normal appearing lymph nodes in each axilla. No significant breast cystic change is seen. There is a moderate pattern of fibroglandular tissue bilaterally and symmetrically. There is a focal area of dermal thickening and increased T2 signal intensity in the inferior and medial aspect of the right breast. The underlying breast tissue appears to be unaffected. This should be correlated with physical exam findings. This should correlate with a visible and/or palpable dermal lesion or scar. There is a mild pattern of symmetrical background parenchymal enhancement. No suspicious morphologic abnormality is seen on high-resolution pre and postcontrast imaging. Subtraction images demonstrate enhancement in the area of dermal thickening described above on the right. This demonstrates predominantly benign pattern continuous type 3 enhancement curve. No suspicious enhancement is seen within either breast. There is another tiny nodular area of dermal enhancement more posteriorly in the medial right breast. Impression: BI-RADS category 0 incomplete breast imaging. There is a 1.5 cm dermal enhancing skin lesion in the inferior and medial aspect of the right breast which should be evaluated and correlated clinically. Biopsy may be considered depending on clinical findings. Otherwise negative bilateral breast MRI study. Electronically Signed by Binu Limon MD 04/22/2019 01:05 P
== END ==
LOC: M RAD 09:24
PROVIDERS: ATTEND Nurse Practitioner Family
DX: N64.52 Nipple discharge (principal); Z80.3 Family history of malignant neoplasm of breast; Z91.89 Other specified personal risk factors, not elsewhere classified; R92.2 Inconclusive mammogram
CPT/HCPCS: A9576; C8908

== ENCOUNTER → 2020-01-20 | Outpatient (REF) | payer OTHER, MEDICAID ==
[~2020-01-20] MED LIST changes: -PROHANCE 279.3MG/ML 15ML VIAL (A9576) As Ordered ONE; -PROHANCE 279.3MG/ML 5ML VIAL (A9576) As Ordered ONE; -TRAZ-163; +TRAZ-257
== END ==
LOC: M LAB REF 19:24
PROVIDERS: ATTEND Physician Assistant
DX: L02.213 Cutaneous abscess of chest wall (principal)

== ENCOUNTER → 2020-02-21 | Outpatient (CLI) | payer OTHER, MEDICAID ==
[2020-02-21 16:08] LABS: HEMATOCRIT 45.6 % (36.0-47.0); HEMOGLOBIN 15.2 g/dl (12.0-15.5); MEAN CORPUSCULAR HEMOGLOBIN 31.9 pg (27.0-33.0); MEAN CORPUSCULAR HGB CONC 33.3 g/dl (32.0-36.5); MEAN CORPUSCULAR VOLUME 95.8 fl (80.0-96.0); PLATELET COUNT, AUTOMATED 304 10^3/uL (150-450); RED BLOOD COUNT 4.76 10^6/uL (4.00-5.40)
[2020-02-21 16:13] LABS: ALBUMIN 3.6 GM/DL (3.2-5.2); ALT/SGPT 27 U/L (12-78); BILIRUBIN,TOTAL 0.5 MG/DL (0.2-1.0); BLOOD UREA NITROGEN 6 MG/DL (7-18); CALCIUM LEVEL 8.9 MG/DL (8.5-10.1); CARBON DIOXIDE LEVEL 25 MEQ/L (21-32); CHLORIDE LEVEL 108 MEQ/L (98-107); CREATININE FOR GFR 0.62 MG/DL (0.55-1.30); FREE T4 1.07 NG/DL (0.76-1.46); GLOMERULAR FILTRATION RATE > 60.0 (>60); GLUCOSE, FASTING 124 MG/DL (70-100); POTASSIUM SERUM 4.2 MEQ/L (3.5-5.1); SODIUM LEVEL 141 MEQ/L (136-145)
[2020-02-21 17:26] LABS: HEMOGLOBIN A1c 5.8 %
== END ==
LOC: M WUC 13:35
PROVIDERS: ATTEND Obstetrics & Gynecology
DX: R53.83 Other fatigue (principal)

== ENCOUNTER → 2020-03-31 | Outpatient (CLI) | payer OTHER | LOC: M LABSMTC 09:33 | PROVIDERS: ATTEND Physical Medicine & Rehabilitation | DX: Z11.59 Encounter for screening for other viral diseases (principal) ==

== ENCOUNTER → 2020-04-20 | Outpatient (CLI) | payer OTHER | LOC: M LABSMTC 09:38 | PROVIDERS: ATTEND Physician Assistant | DX: Z11.59 Encounter for screening for other viral diseases (principal); Z20.828 Contact with and (suspected) exposure to other viral communicable diseases ==

== ENCOUNTER → 2020-05-16 | Outpatient (CLI) | payer OTHER ==
--- NOTE | 2020-07-14 10:18 | REP ---
KUB OF THE ABDOMEN AND PELVIS: HISTORY: Abdominal pain. FINDINGS: 2 AP views of the abdomen and pelvis are performed. I see no compelling evidence for small bowel obstruction. No significantly dilated small bowel loops are seen. There is scattered air and fecal material throughout the nondilated colon. There are a couple of tiny phleboliths in the inferior pelvis. IMPRESSION: Unremarkable bowel gas pattern with no evidence of small bowel obstruction. MTDD
--- NOTE | 2020-07-14 10:18 | REP ---
CHEST X-RAY: 2-VIEWS HISTORY: Upper abdominal pain. COMPARISON: Prior study of 11/30/14. FINDINGS: There is no acute infiltrate. Lungs are clear. Heart is normal in size. Mediastinal silhouette is unremarkable. There are mild degenerative changes in the spine. IMPRESSION: No active pulmonary disease. MTDD
== END ==
LOC: M WUC 17:21
PROVIDERS: ATTEND Nurse Practitioner Family
DX: R10.10 Upper abdominal pain, unspecified (principal)

== ENCOUNTER → 2020-10-01 | Outpatient (CLI) | payer OTHER ==
--- NOTE | 2020-10-01 14:48 | REP ---
INDICATION: CONTUSION COMPARISON: None. TECHNIQUE: AP, lateral, bilateral oblique and sunrise views. FINDINGS: The osseous structures and joint spaces are intact and normal. There is no evidence for acute fracture or dislocation. No joint effusion is appreciated. Surrounding soft tissues are unremarkable. No subcutaneous emphysema or radiodense foreign body. IMPRESSION: Normal examination. No acute fracture or dislocation. <Electronically signed by Jose Alejandro Salter > 10/01/20 [id number]
== END ==
LOC: M WUC 14:21
PROVIDERS: ATTEND Physician Assistant
DX: S80.02XA Contusion of left knee, initial encounter (principal); X58.XXXA Exposure to other specified factors, initial encounter; Y92.9 Unspecified place or not applicable; Y99.9 Unspecified external cause status

== ENCOUNTER → 2021-07-26 | Outpatient (REF) | payer OTHER | LOC: M SFHCWAGY 17:19 | PROVIDERS: ATTEND Obstetrics & Gynecology | DX: Z12.4 Encounter for screening for malignant neoplasm of cervix (principal) ==

== ENCOUNTER → 2021-09-20 | Outpatient (CLI) | payer OTHER | LOC: M WHC 12:31 | PROVIDERS: ATTEND Obstetrics & Gynecology | DX: N93.9 Abnormal uterine and vaginal bleeding, unspecified (principal) ==

== ENCOUNTER → 2022-07-25 | Outpatient (CLI) | payer OTHER ==
[2022-07-25 17:06] LABS: BASO # 0.1 10^3/uL (0.0-0.2); BASO % 0.8 % (0.0-1.0); EOS # 0.3 10^3/uL (0.0-0.5); EOS % 3.2 % (0.0-3.0); HEMATOCRIT 46.5 % (36.0-47.0); HEMOGLOBIN 14.8 g/dl (12.0-15.5); LYMPH % 33.4 % (24.0-44.0); MEAN CORPUSCULAR HGB CONC 31.8 g/dl (32.0-36.5); MEAN CORPUSCULAR VOLUME 97.5 fl (80.0-96.0); MONO # 0.5 10^3/uL (0.0-0.8); NEUTROPHILS % 55.6 % (36.0-66.0); PLATELET COUNT, AUTOMATED 297 10^3/uL (150-450); RED BLOOD COUNT 4.77 10^6/uL (4.00-5.40)
[2022-07-25 17:14] LABS: HEMOGLOBIN A1c 5.9 %
[2022-07-25 17:54] LABS: ALBUMIN 3.8 GM/DL (3.2-5.2); ALT/SGPT 20 U/L (12-78); BILIRUBIN,TOTAL 0.7 MG/DL (0.2-1.0); BLOOD UREA NITROGEN 9 MG/DL (7-18); CALCIUM LEVEL 8.7 MG/DL (8.5-10.1); CARBON DIOXIDE LEVEL 27 MEQ/L (21-32); CHLORIDE LEVEL 108 MEQ/L (98-107); CHOLESTEROL LEVEL 174 MG/DL (<200); CHOLESTEROL RISK RATIO 5.612 (<5); CREATININE FOR GFR 0.58 MG/DL (0.55-1.30); GLOMERULAR FILTRATION RATE > 60.0 (>58); GLUCOSE, FASTING 93 MG/DL (70-100); HDL CHOLESTEROL 31 MG/DL (>40); LDL CHOLESTEROL 94 MG/DL (<100); NON-HDL-C 143 MG/DL; POTASSIUM SERUM 4.3 MEQ/L (3.5-5.1); SODIUM LEVEL 141 MEQ/L (136-145); TOTAL PROTEIN 7.1 GM/DL (6.4-8.2); TRIGLYCERIDES LEVEL 244 MG/DL (<150)
== END ==
LOC: M WUC 13:45
PROVIDERS: ATTEND Nurse Practitioner Family
DX: R73.03 Prediabetes (principal); E78.00 Pure hypercholesterolemia, unspecified; Z79.899 Other long term (current) drug therapy

== ENCOUNTER → 2023-11-03 | Outpatient (CLI) | payer OTHER ==
[2023-11-03 10:20] LABS: BASO # 0.1 10^3/uL (0.0-0.2); EOS # 0.3 10^3/uL (0.0-0.5); EOS % 3.5 % (0.0-3.0); HEMATOCRIT 46.8 % (36.0-47.0); HEMOGLOBIN 15.4 g/dl (12.0-15.5); LYMPH # 2.6 10^3/uL (1.5-5.0); LYMPH % 32.7 % (24.0-44.0); MEAN CORPUSCULAR HEMOGLOBIN 31.4 pg (27.0-33.0); MEAN CORPUSCULAR HGB CONC 32.9 g/dl (32.0-36.5); MEAN CORPUSCULAR VOLUME 95.5 fl (80.0-96.0); MONO # 0.5 10^3/uL (0.0-0.8); MONO % 6.2 % (2.0-8.0); NEUTROPHILS # 4.4 10^3/uL (1.5-8.5); NEUTROPHILS % 55.6 % (36.0-66.0); PLATELET COUNT, AUTOMATED 281 10^3/uL (150-450); WHITE BLOOD COUNT 7.9 10^3/uL (4.0-10.0)
[2023-11-03 10:51] LABS: ALBUMIN 3.8 G/DL (3.2-5.2); ALKALINE PHOSPHATASE 69 U/L (46-116); ALT/SGPT 16 U/L (7.0-40); AST/SGOT 13 U/L (<34); BILIRUBIN,TOTAL 0.7 MG/DL (0.3-1.2); BLOOD UREA NITROGEN 8 MG/DL (9-23); CARBON DIOXIDE LEVEL 27 MMOL/L (20-31); CHLORIDE LEVEL 109 MMOL/L (98-107); CHOLESTEROL LEVEL 202 MG/DL (<200); CHOLESTEROL RISK RATIO 6.06 (<5); CREATININE FOR GFR 0.52 MG/DL (0.55-1.30); GLOMERULAR FILTRATION RATE > 60.0 (>58); GLUCOSE, FASTING 102 MG/DL (60-100); HDL CHOLESTEROL 33.3 MG/DL (>40); LDL CHOLESTEROL 131.1 MG/DL (<100); NON-HDL-C 168.7 MG/DL; POTASSIUM SERUM 4.7 MMOL/L (3.5-5.1); SODIUM LEVEL 140 MMOL/L (136-145); TOTAL PROTEIN 7.3 G/DL (5.7-8.2); TRIGLYCERIDES LEVEL 188 MG/DL (<150)
[2023-11-03 10:52] LABS: HEMOGLOBIN A1c 5.6 % (4.0-6.0)
== END ==
LOC: M WUC 08:04
PROVIDERS: ATTEND Registered Nurse
DX: R73.03 Prediabetes (principal); Z79.899 Other long term (current) drug therapy

== ENCOUNTER → 2023-12-10 | Outpatient (CLI) | payer OTHER | LOC: M SOG 07:51 | PROVIDERS: ATTEND Physician Assistant | DX: M25.531 Pain in right wrist (principal) ==

== ENCOUNTER → 2023-12-24 | Outpatient (REF) | payer OTHER | LOC: M SFHCWAGY 10:08 | PROVIDERS: ATTEND Obstetrics & Gynecology | DX: Z01.419 Encounter for gynecological examination (general) (routine) without abnormal findings (principal); Z77.9 Other contact with and (suspected) exposures hazardous to health ==

== ENCOUNTER → 2024-01-13 | Outpatient (REF) | payer OTHER ==
[~2024-01-13] MED LIST changes: +HYDR-3713 PO; +MIRA3350 PO
== END ==
LOC: M SFHCWAGY 15:14
PROVIDERS: ATTEND Obstetrics & Gynecology
DX: N90.89 Other specified noninflammatory disorders of vulva and perineum (principal); L98.3 Eosinophilic cellulitis [Wells]

== ENCOUNTER → 2024-01-14 | Outpatient (CLI) | payer OTHER ==
[~2024-01-14] MED LIST changes: -HYDR-3713 PO; -MIRA3350 PO
== END ==
LOC: M PLARAD 12:33
PROVIDERS: ATTEND Physician Assistant
DX: M25.531 Pain in right wrist (principal)

== ENCOUNTER 2024-01-17 07:34 | Emergency (ER) | payer OTHER ==
[~2024-01-17] VITALS: Ht 165.1 cm; Wt 102.3 kg
[2024-01-17] MEDS: PERCOCET 5MG/325MG TAB PO ONE (09:11)
[2024-01-17] MEDS: methocarbamoL 750 MG TAB PO ONE (11:48)
[2024-01-17] MEDS ORDERED: MIRA3350 PO (12:59)
[2024-01-17] MEDS ORDERED: HYDR-3713 PO (12:59)
[2024-01-17 13:11] VITALS: BP 120/69; TEMP 98.1; O2SAT 98
== END 2024-01-17 13:13 | disposition home or self-care (01) ==
LOC: M ED 07:34
DX: S32.029A Unspecified fracture of second lumbar vertebra, initial encounter for closed fracture (principal); Y92.019 Unspecified place in single-family (private) house as the place of occurrence of the external cause; Y93.9 Activity, unspecified; Y99.9 Unspecified external cause status; W10.8XXA Fall (on) (from) other stairs and steps, initial encounter; Z88.1 Allergy status to other antibiotic agents; Z88.8 Allergy status to other drugs, medicaments and biological substances; Z91.040 Latex allergy status; Z79.899 Other long term (current) drug therapy; Z79.1 Long term (current) use of non-steroidal anti-inflammatories (NSAID)

== ENCOUNTER → 2024-01-20 | Outpatient (CLI) | payer OTHER ==
[~2024-01-20] MED LIST changes: +HYDR-3713 PO; +MIRA3350 PO; +PROHANCE 279.3MG/ML 15ML VIAL ONE; +PROHANCE 279.3MG/ML 5ML VIAL ONE
== END ==
LOC: M PLAIMG 10:07
PROVIDERS: ATTEND Physician Assistant Surgical
DX: S32.028A Other fracture of second lumbar vertebra, initial encounter for closed fracture (principal); W18.30XA Fall on same level, unspecified, initial encounter; Y92.009 Unspecified place in unspecified non-institutional (private) residence as the place of occurrence of the external cause

== ENCOUNTER → 2024-01-21 | Outpatient (CLI) | payer OTHER ==
[~2024-01-21] MED LIST changes: -PROHANCE 279.3MG/ML 15ML VIAL ONE; -PROHANCE 279.3MG/ML 5ML VIAL ONE
== END ==
LOC: M WHC 09:29
PROVIDERS: ATTEND Physician Assistant Surgical
DX: M51.36 Other intervertebral disc degeneration, lumbar region (principal)

== ENCOUNTER → 2024-01-21 | Outpatient (CLI) | payer OTHER | LOC: M WHC 09:27 | PROVIDERS: ATTEND Obstetrics & Gynecology | DX: Z12.31 Encounter for screening mammogram for malignant neoplasm of breast (principal) ==

== ENCOUNTER → 2024-01-28 | Outpatient (CLI) | payer OTHER | LOC: M WHC 08:23 | PROVIDERS: ATTEND Physician Assistant Surgical | DX: M48.061 Spinal stenosis, lumbar region without neurogenic claudication (principal); M47.896 Other spondylosis, lumbar region; M51.36 Other intervertebral disc degeneration, lumbar region ==

== ENCOUNTER → 2024-03-10 | Outpatient (CLI) | payer OTHER | LOC: M RAD 06:22 | PROVIDERS: ATTEND Physical Medicine & Rehabilitation | DX: S32.028D Other fracture of second lumbar vertebra, subsequent encounter for fracture with routine healing (principal) ==

== ENCOUNTER → 2024-03-10 | Outpatient (CLI) | payer OTHER | LOC: M RAD 06:19 | PROVIDERS: ATTEND Physical Medicine & Rehabilitation | DX: S32.028D Other fracture of second lumbar vertebra, subsequent encounter for fracture with routine healing (principal) | CPT/HCPCS: 78306; 78315; A9503 ==

== ENCOUNTER → 2024-05-02 | Outpatient (REF) | payer OTHER ==
[2024-05-02 15:33] LABS: APPEARANCE, URINE HAZY (CLEAR); BACTERIA, URINE AUTO NEGATIVE (NEGATIVE); BILIRUBIN, URINE AUTO NEGATIVE (NEGATIVE); BLOOD, URINE BLOOD NEGATIVE (NEGATIVE); COLOR, URINE YELLOW (YELLOW); GLUCOSE, URINE (UA) AUTO NEGATIVE (NEGATIVE); KETONE, URINE AUTO NEGATIVE (NEGATIVE); LEUKOCYTE ESTERASE, URINE AUTO NEGATIVE (NEGATIVE); MUCUS, URINE SMALL (NEGATIVE); NITRITE, URINE AUTO NEGATIVE (NEGATIVE); PROTEIN, URINE AUTO NEGATIVE (NEGATIVE); RBC, URINE AUTO 0 /HPF (0-3); SPECIFIC GRAVITY URINE AUTO 1.017 (1.002-1.035); SQUAMOUS EPITHELIAL CELL UR AU 3 /HPF (0-6); UROBILINOGEN, URINE AUTO 0.2 mg/dL (0.0-2.0); WBC, URINE AUTO 1 /HPF (0-3)
== END ==
LOC: M SMT 14:50
PROVIDERS: ATTEND Physician Assistant
DX: R39.11 Hesitancy of micturition (principal)

== ENCOUNTER → 2025-07-11 | Outpatient (CLI) | payer OTHER | LOC: M WUC 11:38 | PROVIDERS: ATTEND Physician Assistant | DX: J06.9 Acute upper respiratory infection, unspecified (principal); R06.2 Wheezing; R91.8 Other nonspecific abnormal finding of lung field ==